=== PATIENT | female | born 1975 | race Caucasian/White ===

== ENCOUNTER 2016-09-14 00:43 | Emergency (ER) | payer OTHER ==
[2016-09-14 00:52] VITALS: RESP 16
--- NOTE | 2016-09-14 02:08 | ED ---
Female Urogenital HPI <Eber Jackson - Last Filed: 09/14/16 06:22> - General Source: patient, RN notes reviewed Mode of arrival: ambulatory Limitations: no limitations <Ayesha Ramirez - Last Filed: 01/21/17 08:26> - General Chief complaint: Vaginal Bleeding Stated complaint: vaginal bleeding Time Seen by Provider: 09/14/16 01:03 - History of Present Illness Initial comments: Patient is a 41-year-old female presents emergency room for evaluation of vaginal bleeding. Patient states she had a hysterectomy done by Dr. Laureano 09/05. Patient states she had a partial hysterectomy due to excessive vaginal bleeding. Patient states that she's been having light spotting up until 6 PM this evening. Patient states that she began heavily bleeding around 6 PM so she went to the [facility] emergency room. Patient states that they place over nitrate in her vaginal area and packed her and told her follow-up with her HEMATOLOGY SUPERVISOR tomorrow morning. Patient states that she got home and went to the bathroom the packing fell out and she began to have the bleeding again. Patient states that she called Dr. huff to be she is recommended to come here for reevaluation. Patient states the bleeding has slightly subside since she's got here. Patient states that he having mild abdominal cramping but denies any significant pain. Patient denies headache or dizziness. Patient denies chest pain or shortness of breath. Patient denies taking any blood thinners. (Ayesha Ramirez) - Related Data Home Medications Medication Instructions Recorded Confirmed No Known Home Medications [No 08/24/16 09/14/16 Known Home Medications] Allergies Allergy/AdvReac Type Severity Reaction Status Date / Time No Known Allergies Allergy Verified 09/14/16 08:28 Review of Systems ROS Other: All systems not noted in ROS Statement are negative. <Eber Jackson - Last Filed: 09/14/16 06:22> ROS Other: All systems not noted in ROS Statement are negative. <Ayesha Ramirez - Last Filed: 01/21/17 08:26> ROS Statement: Those systems with pertinent positive or pertinent negative responses have been documented in the HPI. Past Medical History Additional Past Medical History / Comment(s): HEAVY FREQUENT PERIODS, anemia r/ t childbirth History of Any Multi-Drug Resistant Organisms: None Reported Past Surgical History: Uterine Ablation Additional Past Surgical History / Comment(s): D&C X2 Past Anesthesia/Blood Transfusion Reactions: No Reported Reaction Past Psychological History: No Psychological Hx Reported Smoking Status: Never smoker Past Alcohol Use History: Occasional, Rare Past Drug Use History: None Reported - Past Family History Father Family Medical History: Cancer Additional Family Medical History / Comment(s): PROSTATE <Ayesha Ramirez - Last Filed: 01/21/17 08:26> General Exam General appearance: alert, in no apparent distress Head exam: Present: atraumatic, normocephalic, normal inspection Eye exam: Present: normal appearance, PERRL, EOMI. Absent: scleral icterus, conjunctival injection, periorbital swelling ENT exam: Present: normal exam, mucous membranes moist Neck exam: Present: normal inspection. Absent: tenderness, meningismus, lymphadenopathy Respiratory exam: Present: normal lung sounds bilaterally. Absent: respiratory distress, wheezes, rales, rhonchi, stridor Cardiovascular Exam: Present: regular rate, normal rhythm, normal heart sounds. Absent: systolic murmur, diastolic murmur, rubs, gallop, clicks GI/Abdominal exam: Present: soft, normal bowel sounds. Absent: distended, tenderness, guarding, rebound, rigid Extremities exam: Present: normal inspection, full ROM, normal capillary refill. Absent: tenderness, pedal edema, joint swelling, calf tenderness Back exam: Present: normal inspection Neurological exam: Present: alert, oriented X3, CN II-XII intact Psychiatric exam: Present: normal affect, normal mood Skin exam: Present: warm, dry, intact, normal color. Absent: rash <Eber Jackson - Last Filed: 09/14/16 06:22> Limitations: no limitations General appearance: alert, in no apparent distress Head exam: Present: atraumatic, normocephalic, normal inspection Eye exam: Present: normal appearance ENT exam: Present: normal exam Neck exam: Present: normal inspection Respiratory exam: Absent: respiratory distress External exam: Present: normal external exam Speculum exam: Present: other (absorbable sutures in place with mild bleeding from the suture area. ) Extremities exam: Present: normal inspection Back exam: Present: normal inspection Neurological exam: Present: alert, oriented X3, CN II-XII intact, normal gait Psychiatric exam: Present: normal affect, normal mood Skin exam: Present: warm, dry, intact, normal color. Absent: rash <Ayesha Ramirez - Last Filed: 01/21/17 08:26> - General Exam Comments Initial Comments: Sitting in exam room, no acute distress. (Ayesha Ramirez) Course <Eber Jackson - Last Filed: 09/14/16 06:22> <Ayesha Ramirez - Last Filed: 01/21/17 08:26> Vital Signs 09/14/16 09/14/16 09/14/16 00:46 03:06 08:15 Temperature 97.6 F 97.6 F 98.0 F Pulse Rate 78 80 73 Respiratory 16 16 16 Rate Blood Pressure 136/74 125/61 111/67 O2 Sat by Pulse 100 100 97 Oximetry - Reevaluation(s) Reevaluation #1: 09/14/16 03:[address] Rae regarding patient, aware of patient, aware of ultrasound results. Will see patient in the ER (Eber Jackson) Medical Decision Making <Eber Jackson - Last Filed: 09/14/16 06:22> - Radiology Data Radiology results: report reviewed, image reviewed <Ayesha Ramirez - Last Filed: 01/21/17 08:26> - Medical Decision Making 41 female seen in ER for vaginal bleeding, postoperative bleeding or vaginal hysterectomy, patient seen in the ER and evaluated by Dr. Rae, patient ultrasound was obtained, negative, patient can be discharged home (Eber Jackson) Patient is a 41-year-old female presents emergency room for evaluation of vaginal bleeding. Case discussed with Dr. Jackson ultrasound ordered. Dr. Jackson spoke to Dr. Rae who will come in to evaluate patient. (Ayesha Ramirez) Disposition <Eber Jackson - Last Filed: 09/14/16 06:22> <Ayesha Ramirez - Last Filed: 01/21/17 08:26> Clinical Impression: Post-op bleeding Disposition: HOME SELF-CARE Condition: Good Instructions: Postoperative Bleeding (ED) Referrals: Cande Giordano MD [Primary Care Provider] - 1-2 days
--- NOTE | 2016-09-14 02:26 | US ---
EXAMINATION TYPE: US pelvic complete DATE OF EXAM: 09/14/2016 2:10 AM COMPARISON: 04/03/2011 CLINICAL HISTORY: Partial hysterectomy on 09/04/2016. Bleeding. Cramping. R/O free fluid . TECHNIQUE: Transabdominal (TA) Date of LMP: not available EXAM MEASUREMENTS: Uterus: removed Right Ovary: not seen Left Ovary: not seen FINDINGS: TECHNOLOGIST IMPRESSION: 1. Uterus: Removed. Possible vascular lesion seen at end of vaginal region = 2.7 x 2.5 x 2.4 cm 2. Endometrium: removed 3. Right Ovary: not seen 4. Left Ovary: not seen Spectral, color and waveform doppler imaging shows good arterial and venous flow within the ovaries ; there is no evidence for ovarian torsion. 5. Bilateral Adnexa: peristalsing bowel seen 6. Posterior cul-de-sac: small amount of free fluid seen There is evidence of small amount of free fluid in the cul-de-sac. IMPRESSION: 1. Postsurgical changes of probable partial hysterectomy and bilateral oophorectomy. 2. 2.7 x 2.5 x 2.4 cm vascular lesion is noted in the lower uterine segment or vaginal cuff area and the possibility of inflammatory or neoplastic process in this area cannot be excluded. 3. Small amount of free fluid is noted in the cul-de-sac. 4. INST[employer]ER [employer]ING [employer] consultation is recommended.
[2016-09-14 08:16] VITALS: BP 111/67; PULSE 73; TEMP 98
--- NOTE | 2016-09-14 08:24 | P.OBCN ---
History of Present Illness Consult date: 09/14/16 Reason for consult: other (Vaginal bleeding status post total vaginal hysterectomy) Chief complaint: Heavy vaginal bleeding History of present illness: This is a 41-year-old woman who underwent a total vaginal hysterectomy with Dr. Laureano on 09/05/2016. She was discharged home on postop day 1. She reports sudden onset of bright red vaginal bleeding that was heavy enough to soak through her clothing last night at approximately 7 PM. She was driving her kids to practice and denies any other vigorous activity, trauma or anything else unusual at that time. She initially went to an emergency room in [place] as this is closer to her home. I did speak with the emergency room physician there and recommended their NAIL FEEDER on-call evaluate the patient. According to their report the patient's vital signs were stable, her hemoglobin was normal and there was a small amounts of vaginal bleeding noted at the apex of the vaginal cuff to which Silver nitrate was applied. A packing was placed in the vagina. The patient states she then went home and by the time she moved around again at home a few hours later the vaginal packing came out along with clot and additional bleeding. She then presents to this emergency room. Currently she denies any abdominal or pelvic pain. She denies feeling lightheaded or dizzy. She reports normal bowel and bladder function without blood in the stool or urine. She has been resting comfortably in the emergency room for several hours and states that there is significantly less vaginal bleeding when she is up to the bathroom. Review of a pelvic ultrasound is remarkable for an approximately 2.5 cm lesion likely consistent with a hematoma at the top of the vaginal cuff. There is scant free fluid in the pelvis. There are no other abnormalities noted. I did review the images myself. Review of Systems Constitutional: Reports fatigue, Denies fever Cardiovascular: Denies chest pain, Denies rapid heart beat, Denies shortness of breath Respiratory: Denies cough Gastrointestinal: Denies abdominal pain, Denies BRBPR, Denies constipation, Denies diarrhea, Denies nausea, Denies vomiting Genitourinary: Reports abnormal vaginal bleeding, Denies difficulty voiding, Denies dysuria, Denies hematuria, Denies urgency Musculoskeletal: Reports low back pain Neurological: Denies headaches Past Medical History Additional Past Medical History / Comment(s): HEAVY FREQUENT PERIODS, anemia r/ t childbirth History of Any Multi-Drug Resistant Organisms: None Reported Past Surgical History: Uterine Ablation Additional Past Surgical History / Comment(s): D&C X2, total vaginal hysterectomy on 09/05/2016 Past Anesthesia/Blood Transfusion Reactions: No Reported Reaction Past Psychological History: No Psychological Hx Reported Smoking Status: Never smoker Past Alcohol Use History: Occasional, Rare Past Drug Use History: None Reported - Past Family History Father Family Medical History: Cancer Additional Family Medical History / Comment(s): PROSTATE Medications and Allergies Home Medications Medication Instructions Recorded Confirmed Type No Known Home Medications [No 08/24/16 09/14/16 History Known Home Medications] Allergies Allergy/AdvReac Type Severity Reaction Status Date / Time No Known Allergies Allergy Verified 09/14/16 00:52 Exam - Vital Signs Vital signs: Vital Signs Temp Pulse Resp BP Pulse Ox 09/14/16 03:06 97.6 F 80 16 125/61 100 09/14/16 00:46 97.6 F 78 16 136/74 100 Intake and Output 09/13/16 09/14/16 09/14/16 22:59 06:59 14:59 Other: Weight 58.967 kg Targeted physical exam was performed. Patient is currently resting comfortably in bed. No apparent distress. The abdomen is slim and soft. There is no distention. There is no rebound, guarding or flank pain. There is no suprapubic tenderness. On chaperoned pelvic examination she has normal female external genitalia without lesions or ureter station. On speculum examination the vaginal cuff is readily visualized. There is a small amount of watery bloody discharge noted. The entire vaginal cuff is inspected and there is no obvious active bleeding. This was observed for some time and no bleeding was noted. The speculum was removed and a bimanual exam was performed. The cuff palpates completely intact. The there is some fullness at the top of the vaginal cuff on bimanual examination however no distinct masses noted. I would say this is consistent with postop day 9 examination. There is no active bleeding after this exam. Results US - abdomen: report reviewed, image reviewed Assessment and Plan (1) Vaginal vault hematoma Status: Acute (2) S/P hysterectomy Status: Acute (3) Post-op bleeding Status: Acute Plan: This is a 41-year-old postop day 9 woman status post total vaginal hysterectomy she has a small vaginal cuff hematoma. There does not appear to be any evidence of active pelvic or intra-abdominal bleeding. My examination is quite benign. She is hemodynamically stable. At this time he do not believe surgical on exploration is necessary. Patient is counseled to decrease her activities. She is counseled to expect some further bleeding as the hematoma may continue to drain. She is instructed to contact me with any resumption of heavy bright red vaginal bleeding, new onset of pelvic pain, fever greater then 100.5 or any other concerning signs or symptoms. She has a scheduled postoperative visit within [address] Laureano which she should keep. She is reminded nothing in the vagina, no vigorous activities or intercourse. Time with Patient: Greater than 30
== END 2016-09-14 08:28 | disposition home or self-care (01) ==
LOC: EC 00:43
DX: N99.820 Postprocedural hemorrhage of a genitourinary system organ or structure following a genitourinary system procedure (principal); Z90.710 Acquired absence of both cervix and uterus
CPT/HCPCS: 76856; 99284